=== PATIENT | male | born 1955 | race Caucasian/White ===

== ENCOUNTER 2017-01-03 08:54 | Day surgery (SDC) | payer OTHER ==
[~2017-01-03 08:54] MED LIST: PHENYLEPHRINE 2.5% OPHTH 2 ML DROPS ONE
[2017-01-03] MEDS ORDERED: PROPARACAINE 0.5% OPHTH DROPS 15 ML OPTH ONE ×2 (09:10→09:39)
[2017-01-03] MEDS ORDERED: KETOROLAC 0.45% OPHTH DROPS OPTH ONE (09:10)
[2017-01-03] MEDS ORDERED: CYCLOPENTOLATE 1% OPHTH DROPS 2 ML OPTH ONE (09:10)
[2017-01-03] MEDS ORDERED: PHENYLEPHRINE 2.5% OPHTH 2 ML DROPS OPTH ONE (09:10)
[2017-01-03] MEDS ORDERED: LACTATED RINGERS 1,000 ML IV ONE (09:15)
[2017-01-03] MEDS ORDERED: BRIMONIDINE 0.2% OPHTH DROPS 5 ML OPTH ONE (09:39)
[2017-01-03] MEDS ORDERED: BSS/LIDOCAINE/EPINEPHRINE 1 ML SYRINGE IO ONE ×2 (09:39)
[2017-01-03] MEDS ORDERED: CHONDR SULF/HYALURONATE SYRINGE IO ONE (09:39)
[2017-01-03] MEDS ORDERED: TRIAMCIN/MOXIFLOX/VANCO 1 ML VIAL IO ONE ×2 (09:39)
[2017-01-03] MEDS ORDERED: EPINEPHrine 1 MG/ML AMP IVP ONE (09:39)
[2017-01-03] MEDS ORDERED: TIMOLOL 0.5% OPHTH DROPS OPTH ONE (09:39)
[2017-01-03] MEDS ORDERED: PROPOFOL 200 MG/20 ML VIAL IVP ONE (09:43)
[2017-01-03] MEDS ORDERED: LIDOCAINE-MPF 2% 5 ML VIAL IM ONE (09:43)
[2017-01-03] MEDS ORDERED: MIDAZOLAM 2 MG/2 ML VIAL IVP ONE (09:43)
[2017-01-03 10:11] VITALS: BP 118/61
--- NOTE | 2017-01-03 10:12 | OPERATIVE REPORT ---
DATE OF SURGERY: 01/03/2017 00:00:00 PREOPERATIVE DIAGNOSIS: Visually significant cataract, right eye. This is his first cataract surgery. POSTOPERATIVE DIAGNOSIS: Visually significant cataract, right eye. This is his first cataract surgery . NAME OF PROCEDURE: Phacoemulsification posterior chamber intraocular lens implant, right eye. SURGEON: Joseph Lemus MD ANESTHESIA: Monitored anesthesia care. COMPLICATIONS: None. OPERATIVE INDICATIONS: This is a 61-year-old man with progressive vision loss in the right eye due to 3-4+ nuclear sclerotic cataract. Best corrected visual acuity was 20/70 with glare to 20/400 in the right eye. Indications for surgery were overall decrease in vision, difficulty seeing words on a comp uter screen, difficulty reading, difficulty seeing words or game scores on TV, difficulty seeing stre et signs, and difficulty with glare or bright lights in any situation. He was consented at length con cerning the risks and benefits of cataract surgery after which he expressed a desire to proceed with surgery. OPERATIVE PROCEDURE: The patient was taken into OR #2 and placed under monitored anesthesia care. A s urgical time-out was conducted confirming correct patient, correct procedure and correct surgical sit e. He was given topical anesthesia and then prepped and draped in the usual sterile fashion. The eye was entered at the 12 and 9 o'clock positions. Intracameral Shugarcaine was injected into the anterio r chamber followed by Viscoat. A continuous tear curvilinear capsulorrhexis was performed. The nucleu s was hydrodissected and phacoemulsified. The cortex was evacuated using automated infusion aspiratio n. Provisc was injected into the capsular bag and a 17.5 diopter intraocular lens was inserted into t he bag. Approximately 0.8 mL of a mixture of triamcinolone, moxifloxacin, and vancomycin was injected subconjunctivally in the superior quadrant for infection and inflammation prophylaxis. I/A was used to evacuate the viscoelastic materials. The eye was inflated to physiologic pressure using balanced s alt solution and found to be watertight. The patient was taken from the operating room in good condit ion and given postoperative instructions. JOB #: [id number] EXT JOB #:[id number]
== END 2017-01-03 08:55 | disposition home or self-care (01) ==
LOC: SDS 08:54
PROVIDERS: ATTEND Ophthalmology
PROC: 08RJ3JZ Replacement of Right Lens with Synthetic Substitute, Percutaneous Approach (ICD-10-PCS; principal; 2017-01-03 10:00)
DX: H25.11 Age-related nuclear cataract, right eye (principal); F17.200 Nicotine dependence, unspecified, uncomplicated
CPT/HCPCS: 66984; A9270; J7120; V2632

== ENCOUNTER 2017-01-10 08:57 | Day surgery (SDC) | payer OTHER ==
[2017-01-10] MEDS ORDERED: PHENYLEPHRINE 2.5% OPHTH 2 ML DROPS ONE (09:04)
[2017-01-10] MEDS ORDERED: LACTATED RINGERS 500 ML IV ONE (09:10)
[2017-01-10] MEDS ORDERED: KETOROLAC 0.45% OPHTH DROPS OPTH ONE (09:13)
[2017-01-10] MEDS ORDERED: CYCLOPENTOLATE 1% OPHTH DROPS 2 ML OPTH ONE (09:13)
[2017-01-10] MEDS ORDERED: PROPARACAINE 0.5% OPHTH DROPS 15 ML OPTH ONE ×2 (09:13→10:17)
[2017-01-10] MEDS ORDERED: PHENYLEPHRINE 2.5% OPHTH 2 ML DROPS OPTH ONE (09:13)
[2017-01-10] MEDS ORDERED: PROPOFOL 200 MG/20 ML VIAL IVP ONE (10:00)
[2017-01-10] MEDS ORDERED: MIDAZOLAM 2 MG/2 ML VIAL IVP ONE (10:00)
[2017-01-10] MEDS ORDERED: BRIMONIDINE 0.2% OPHTH DROPS 5 ML OPTH ONE (10:16)
[2017-01-10] MEDS ORDERED: CHONDR SULF/HYALURONATE SYRINGE IO ONE (10:17)
[2017-01-10] MEDS ORDERED: EPINEPHrine 1 MG/ML AMP IVP ONE (10:17)
[2017-01-10] MEDS ORDERED: TIMOLOL 0.5% OPHTH DROPS OPTH ONE (10:17)
[2017-01-10] MEDS ORDERED: BSS/LIDOCAINE/EPINEPHRINE 1 ML SYRINGE IO ONE (10:17)
[2017-01-10] MEDS ORDERED: TRIAMCIN/MOXIFLOX/VANCO 1 ML VIAL IO ONE (10:17)
[2017-01-10 10:38] VITALS: BP 111/73
--- NOTE | 2017-01-10 11:21 | OPERATIVE REPORT ---
DATE OF SURGERY: 01/10/2017 00:00:00 PREOPERATIVE DIAGNOSIS: Visually significant cataract, left eye. Cataract surgery was performed on th e right eye on 03 January 2017. POSTOPERATIVE DIAGNOSIS: Visually significant cataract, left eye. Cataract surgery was performed on t he right eye on 03 January 2017. NAME OF PROCEDURE: Phacoemulsification posterior chamber intraocular lens implant, left eye. SURGEON: Joseph Lemus MD ANESTHESIA: Monitored anesthesia care. COMPLICATIONS: None. OPERATIVE INDICATIONS: This is a 61-year-old man with progressive vision loss in the left eye due to 3-4+ nuclear sclerotic cataract. Best corrected visual acuity was 20/70 with glare to 20/400 in the l eft eye. Indications for surgery were overall decrease in vision, difficulty seeing words and game sc ores on TV, difficulty seeing street signs. He was consented at length concerning the risks and benef its of cataract surgery after which he expressed a desire to proceed with surgery. OPERATIVE PROCEDURE: The patient was taken into OR #2 and placed under monitored anesthesia care. A s urgical time-out was conducted confirming correct patient, correct procedure and correct surgical sit e. He was given topical anesthesia and prepped and draped in the usual sterile fashion. The eye was e ntered at the 6- and 3 o'clock positions. Intracameral Shugarcaine was injected into the anterior angelica mber followed by Viscoat. A continuous tear curvilinear capsulorrhexis was performed. The nucleus was hydrodissected and phacoemulsified. The cortex was evacuated using automated infusion aspiration. Pr ovisc was injected in the capsular bag and a 17.5 diopter intraocular lens inserted into the bag. Bonilla roximately 0.8 mL of a mixture of triamcinolone, moxifloxacin, and vancomycin was injected subconjunc tivally in the superior quadrant for infection and inflammation prophylaxis. I/A was used to evacuate the viscoelastic materials. The eye was inflated to physiologic pressure using balanced salt solutio n and found to be watertight. The patient was taken from the operating room in good condition and giv en postoperative instructions. 11:9:00 JOB #: [id number] EXT JOB #:[id number]
== END 2017-01-10 08:58 | disposition home or self-care (01) ==
LOC: SDS 08:57
PROVIDERS: ATTEND Ophthalmology
PROC: 08RK3JZ Replacement of Left Lens with Synthetic Substitute, Percutaneous Approach (ICD-10-PCS; principal; 2017-01-10 10:00)
DX: H25.12 Age-related nuclear cataract, left eye (principal); F17.210 Nicotine dependence, cigarettes, uncomplicated
CPT/HCPCS: 66984; A9270; V2632